=== PATIENT | female | born 1935 | race Caucasian/White ===

== ENCOUNTER 2017-05-04 21:26 | Observation (INO) | payer OTHER ==
[2017-05-04] MEDS ORDERED: ONDANSETRON DISINTEGRATING 4 MG TAB PO ONE (21:41)
[2017-05-04] MEDS ORDERED: fentaNYL 100 MCG/2 ML INJ IVP ONE (21:41)
--- NOTE | 2017-05-04 21:50 | EDPHY ---
H & P Time Seen by Provider: 05/04/17 21:35 HPI/ROS: CHIEF COMPLAINT: Right knee pain HISTORY OF PRESENT ILLNESS: The patient is an 82-year-old female who presents emergency department right knee pain. Patient had a right knee replacement on by Dr. Walters at [facility]. She was recovering well. 2 weeks ago she developed sudden right calf pain. She had significant discoloration and bruising. She was evaluated and had a negative ultrasound for DVT but did show Fried cyst. Patient had been recovering well from this until today. She has bleeding with some laundry when she noticed some mild right knee pain. She normally uses 1 crutch. She went to eat dinner pain increased. She now has moderate to severe right knee pain. It came on fairly suddenly. She noticed significant swelling of the right knee as well. She has no redness or warmth. She denies fevers or chills. She does not recall any trauma. REVIEW OF SYSTEMS: My complete review of systems is negative except as mentioned in the HPI. Smoking Status: Never smoked Constitutional: Initial Vital Signs Temperature (C) 37.0 C 05/04/17 21:25 Heart Rate 79 05/04/17 21:25 Respiratory Rate 20 05/04/17 21:25 Blood Pressure 169/99 H 05/04/17 21:25 O2 Sat (%) 97 05/04/17 21:25 O2 Delivery Mode Room Air Allergies/Adverse Reactions: Penicillins Allergy (Verified 11/14/12 14:30) Home Medications: Medication Instructions Recorded Glucosamine/Methylsulfonylmeth 1 cap PO DAILY 11/14/12 [Glucosamine-Msm 500-400 Mg Cap] Ibuprofen [Motrin 200 mg (OTC)] 200 mg PO HS 11/14/12 Levothyroxine [Synthroid 125 mcg 125 mcg PO DAILY06 11/14/12 (RX)] Oxybutynin Patch 3.9mg 1 tab TD Q3D 11/14/12 Pharmacy Completed 11/14/12 11/14/12 Oxybutynin Chloride 02/11/15 Medical Decision Making ED Course/Re-evaluation: In the emergency department I discussed possible etiologies with the patient. I answered all her questions. Laboratory studies were sent. An x-ray of her right knee was ordered. I reviewed the patient's laboratory studies. Her CBC was notable for mild anemia.. Her ESR and C-reactive protein were normal. Her coags were normal. Her chemistry panel is unremarkable. Knee x-ray: Please refer the dictated report by Dr. Vicente. There is an effusion but no fracture or abnormality with the hardware. I discussed the results with the patient. I answered all of her questions. Patient states her pain is improved after receiving the pain medication. However she lives home alone she does not feel she can ambulate. I feel the patient would be a risk to be sent home at this time. I discussed the case with the hospitalist service. Patient will be admitted. Differential Diagnosis: My differential includes but is not limited to joint effusion, hardware disruption, septic joint, sprain, strain, arthritis - Data Points Laboratory Results: Laboratory Results 05/04/17 21:30 05/04/17 21:30 05/04/17 05/04/17 05/04/17 21:30 21:30 21:30 WBC 6.48 10^3/uL 10^3/uL (3.80-9.50) RBC 4.85 10^6/uL 10^6/uL (4.18-5.33) Hgb 11.1 g/dL L g/dL (12.6-16.3) Hct 35.6 % L % (38.0-47.0) MCV 73.4 fL L fL (81.5-99.8) MCH 22.9 pg L pg (27.9-34.1) MCHC 31.2 g/dL L g/dL (32.4-36.7) RDW 17.2 % H % (11.5-15.2) Plt Count 328 10^3/uL 10^3/uL (150-400) MPV 9.1 fL fL (8.7-11.7) Neut % (Auto) 61.4 % % (39.3-74.2) Lymph % (Auto) 23.0 % % (15.0-45.0) [place] % (Auto) 10.3 % % (4.5-13.0) Eos % (Auto) 4.2 % % (0.6-7.6) Baso % (Auto) 0.9 % % (0.3-1.7) Nucleat RBC Rel Count 0.0 % % (0.0-0.2) Absolute Neuts (auto) 3.98 10^3/uL 10^3/uL (1.70-6.50) Absolute Lymphs (auto) 1.49 10^3/uL 10^3/uL (1.00-3.00) Absolute Monos (auto) 0.67 10^3/uL 10^3/uL (0.30-0.80) Absolute Eos (auto) 0.27 10^3/uL 10^3/uL (0.03-0.40) Absolute Basos (auto) 0.06 10^3/uL 10^3/uL (0.02-0.10) Absolute Nucleated RBC 0.00 10^3/uL 10^3/uL (0-0.01) Immature Gran % 0.2 % % (0.0-1.1) Immature Gran # 0.01 10^3/uL 10^3/uL (0.00-0.10) ESR 20 MM/HR MM/HR (0-30) PT 14.5 SEC SEC (12.0-15.0) INR 1.11 (0.83-1.16) APTT 30.8 SEC SEC (23.0-38.0) Sodium 139 mEq/L mEq/L (135-145) Potassium 4.1 mEq/L mEq/L (3.5-5.2) Chloride 105 mEq/L mEq/L (97-110) Carbon Dioxide 23 mEq/l mEq/l (22-31) Anion Gap 11 mEq/L mEq/L (8-16) BUN 23 mg/dL mg/dL (7-23) Creatinine 0.7 mg/dL mg/dL (0.6-1.0) Estimated GFR > 60 Glucose 86 mg/dL mg/dL (70-100) Calcium 8.5 mg/dL mg/dL (8.5-10.4) C-Reactive Protein < 5.0 mg/L mg/L (<10.0) Medications Given: Discontinued Medications Fentanyl (Sublimaze) 25 mcg IVP EDNOW ONE Stop: 05/04/17 21:42 Last Admin: 05/04/17 21:50 Dose: 25 mcg Ondansetron HCl (Zofran Odt) 4 mg PO EDNOW ONE Stop: 05/04/17 21:42 Last Admin: 05/04/17 21:50 Dose: 4 mg Departure - Departure Disposition: [facility] Inpatient Acute Clinical Impression: Right knee pain Qualifiers: Chronicity: acute Qualified Code(s): M25.561 - Pain in right knee Condition: Good Instructions: Knee Pain (ED) Referrals: Patient,NotPresent [Primary Care Provider] - As per Instructions
[2017-05-04 21:58] LABS: PLATELET COUNT 328 10^3/uL (150-400)
[2017-05-04 22:10] LABS: INR 1.11 (0.83-1.16); PROTIME(PATIENT) 14.5 SEC (12.0-15.0)
[2017-05-04] MEDS ORDERED: ACETAMINOPHEN 325 MG TAB PO PRN ×2 (22:29→22:42)
[2017-05-04] MEDS ORDERED: ONDANSETRON 4 MG/2 ML VIAL IVP PRN (22:29)
[2017-05-04] MEDS ORDERED: ONDANSETRON DISINTEGRATING 4 MG TAB PO PRN (22:29)
--- NOTE | 2017-05-04 22:51 | PDGENHP ---
History and Physical - Chief Complaint Knee pain - History of Present Illness 82 up F w A who had a R TKA on 04/02/16 presents with R knee pain. Patient first developed R calf/knee pain 2 weeks ago. She was evaluated with an ultrasound that revealed a Fried's cyst and no DVT. Today the patient was in usual state of health when she noticed new swelling and pain in her R knee. She has no redness, warmth, fever, or chills. She lives alone and is unable to ambulate so is being admitted for pain control and therapy evaluation. History Information - Allergies/Home Medication List Allergies/Adverse Reactions: Penicillins Allergy (Verified 11/14/12 14:30) Home Medications: Glucosamine/Methylsulfonylmeth [Glucosamine-Msm 500-400 Mg Cap] 1 cap PO DAILY 11/14/12 [Last Taken 11/14/12] Ibuprofen [Motrin 200 mg (OTC)] 200 mg PO HS 11/14/12 [Last Taken 11/13/12] Levothyroxine [Synthroid 125 mcg (RX)] 125 mcg PO DAILY06 11/14/12 [Last Taken 11/14/12 07:00] Oxybutynin Patch 3.9mg 1 tab TD Q3D 11/14/12 [Last Taken 11/14/12] Pharmacy Completed 11/14/12 11/14/12 [Last Taken Unknown] Oxybutynin Chloride 02/11/15 [Last Taken Unknown] I have personally reviewed and updated: family history, medical history - Past Medical History arthritis - Surgical History Additional surgical history: R TKA 04/02/16 - Family History Additional family history: Asked, denies - Social History Smoking Status: Never smoked Review of Systems Review of Systems: ROS: 10pt was reviewed & negative except for what was stated in HPI & below Physical Exam Physical Exam: Temp Pulse Resp BP Pulse Ox 37.0 C 79 20 169/99 H 97 05/04/17 21:25 05/04/17 21:25 05/04/17 21:25 05/04/17 21:25 05/04/17 21:25 Constitutional: no apparent distress, uncomfortable Eyes: PERRL, EOMI Ears, Nose, Mouth, Throat: moist mucous membranes, no oral mucosal ulcers Cardiovascular: regular rate and rhythym, no murmur, rub, or gallop Respiratory: no respiratory distress, clear to auscultation Gastrointestinal: normoactive bowel sounds, soft, non-tender abdomen Skin: warm, other (R knee effusion, tender to palpation) Neurologic: AAOx3, CN II-XII Intact Psychiatric: interacting appropriately, not anxious Lab Data & Imaging Review 05/04/17 21:30 05/04/17 21:30 WBC 6.48 10^3/uL (3.80-9.50) 05/04/17 21: RBC 4.85 10^6/uL (4.18-5.33) 05/04/17 21: Hgb 11.1 g/dL (12.6-16.3) L 05/04/17 21: Hct 35.6 % (38.0-47.0) L 05/04/17 21: MCV 73.4 fL (81.5-99.8) L 05/04/17 21: MCH 22.9 pg (27.9-34.1) L 05/04/17 21: MCHC 31.2 g/dL (32.4-36.7) L 05/04/17 21: RDW 17.2 % (11.5-15.2) H 05/04/17 21: Plt Count 328 10^3/uL (150-400) 05/04/17 21: MPV 9.1 fL (8.7-11.7) 05/04/17 21: Neut % (Auto) 61.4 % (39.3-74.2) 05/04/17 21: Lymph % (Auto) 23.0 % (15.0-45.0) 05/04/17 21: [place] % (Auto) 10.3 % (4.5-13.0) 05/04/17 21: Eos % (Auto) 4.2 % (0.6-7.6) 05/04/17 21: Baso % (Auto) 0.9 % (0.3-1.7) 05/04/17 21: Nucleat RBC Rel Count 0.0 % (0.0-0.2) 05/04/17 21: Absolute Neuts (auto) 3.98 10^3/uL (1.70-6.50) 05/04/17 21:30 Absolute Lymphs (auto) 1.49 10^3/uL (1.00-3.00) 05/04/17 21:30 Absolute Monos (auto) 0.67 10^3/uL (0.30-0.80) 05/04/17 21:30 Absolute Eos (auto) 0.27 10^3/uL (0.03-0.40) 05/04/17 21:30 Absolute Basos (auto) 0.06 10^3/uL (0.02-0.10) 05/04/17 21:30 Absolute Nucleated RBC 0.00 10^3/uL (0-0.01) 05/04/17 21: Immature Gran % 0.2 % (0.0-1.1) 05/04/17 21: Immature Gran # 0.01 10^3/uL (0.00-0.10) 05/04/17 21:30 ESR 20 MM/HR (0-30) 05/04/17 21:30 PT 14.5 SEC (12.0-15.0) 05/04/17 21:30 INR 1.11 (0.83-1.16) 05/04/17 21:30 APTT 30.8 SEC (23.0-38.0) 05/04/17 21:30 Sodium 139 mEq/L (135-145) 05/04/17 21:30 Potassium 4.1 mEq/L (3.5-5.2) 05/04/17 21:30 Chloride 105 mEq/L (97-110) 05/04/17 21: Carbon Dioxide 23 mEq/l (22-31) 05/04/17 21:30 Anion Gap 11 mEq/L (8-16) 05/04/17 21:30 BUN 23 mg/dL (7-23) 05/04/17 21:30 Creatinine 0.7 mg/dL (0.6-1.0) 05/04/17 21:30 Estimated GFR > 60 05/04/17 21:30 Glucose 86 mg/dL (70-100) 05/04/17 21:30 Calcium 8.5 mg/dL (8.5-10.4) 05/04/17 21:30 C-Reactive Protein < 5.0 mg/L (<10.0) 05/04/17 21:30 Assessment & Plan Assessment: 82 yo F w/ hx of R TKA presents with R knee pain. Plan: 1. R Knee pain - Most likely related to recently diagnosed Fried's cyst, perhaps this ruptured. Patient has no signs of infection currently with normal Temp, WBC, ESR, and CRP. Normal inflammatory markers make gout and CPPD less likely but these can be considered if not improving with conservative measures. - Admit for observation - APAP PRN for pain control, will prescribes opiates sparingly if necessary noting age - PT/OT evaluations - Ice, elevate as able - If not improving or signs/symptoms of inflammation arise, will need arthrocentesis Diet - Regular Code - Full Ppx- SCDs Dispo - Admit under observation status
[2017-05-04] MEDS ORDERED: ACETAMINOPHEN 500 MG TAB ONE (23:09)
[2017-05-04] MEDS ORDERED: ACETAMINOPHEN 500 MG TAB PO PRN (23:30)
[2017-05-05 04:55] LABS: PLATELET COUNT 280 10^3/uL (150-400)
[2017-05-05 07:39] VITALS: BP 130/68; PULSE 82; RESP 14; TEMP 97.3; O2SAT 90
[2017-05-05] MEDS ORDERED: ACETAMINOPHEN 500 MG TAB PO PRN (15:01)
[2017-05-05] MEDS ORDERED: NAPROXEN SODIUM 220 MG TAB PO PRN (15:01)
--- NOTE | 2017-05-05 15:04 | HOSPPROG ---
Hospitalist Progress Note Assessment/Plan: knee better home today see dc summary Subjective: kne better w conservatie measures Objective: Vital Signs Temp Pulse Resp BP Pulse Ox 36.3 C 82 14 130/68 H 90 L 05/05/17 07:38 05/05/17 07:38 05/05/17 07:38 05/05/17 07:38 05/05/17 07:38 Laboratory Results 05/05/17 04:44 05/05/17 04:44 05/04/17 05/05/17 05/06/17 05:59 05:59 05:59 Intake Total 0 Balance 0 PT 14.5 SEC (12.0-15.0) 05/04/17 21:30 INR 1.11 (0.83-1.16) 05/04/17 21:30 - Physical Exam Constitutional: no apparent distress, appears nourished Eyes: PERRL, anicteric sclera Ears, Nose, Mouth, Throat: moist mucous membranes, hearing normal Cardiovascular: regular rate and rhythym, no murmur, rub, or gallop Respiratory: no respiratory distress, no rales or rhonchi Gastrointestinal: normoactive bowel sounds Genitourinary: no bladder fullness Skin: warm Musculoskeletal: other (knee w small effusion, not warm) Neurologic: AAOx3, sensation intact bilaterally ICD10 Worksheet Patient Problems: Problems Problem Status Onset Right knee pain Acute
[2017-05-05] MEDS ORDERED: Denosumab [Prolia] 60 MG SQ SCH (15:15)
--- NOTE | 2017-05-05 16:22 | GDS ---
[f rep st] DISCHARGE SUMMARY DISCHARGE DIAGNOSES: 1. Knee pain, likely secondary to ruptured Fried's cyst. 2. History of recent knee replacement in the fall. Please see admission history and physical by Dr. Sheng Hale. The patient is a remarkably spry 82-year-old female who had a recent knee replacement. She had right knee replacement in March 2016, and presents with a 2-week history of knee pain. She had a ruptu red Fried's cyst and became acutely worse yesterday. Examination revealed no warmth. There was a sm all effusion. There was no pain with passive motion. The patient received conservative therapy with p.r.n. Tylenol. The knee was considerably better today. She is [facility] /[id number]/MODL
[2017-05-05] MEDS ORDERED: KETOPROFEN TP SCH (21:00)
[2017-05-05] MEDS ORDERED: TROSPIUM CHLORIDE 20 MG PO SCH (21:00)
[2017-05-05] MEDS ORDERED: CHOLECALCIFEROL VIT D3 2,000 UNITS TAB/CAP PO SCH (21:00)
[2017-05-06] MEDS ORDERED: LEVOTHYROXINE 112 MCG TAB PO SCH (06:00)
[2017-05-06] MEDS ORDERED: MULTIVITAMINS 1 EACH TAB PO SCH (09:00)
[2017-05-06] MEDS ORDERED: ASPIRIN 81 MG CHEWABLE TAB PO SCH (09:00)
== END 2017-05-05 16:33 | disposition home or self-care (01) ==
LOC: EDUNIT# → F3E 23:40
PROVIDERS: ADMIT Student in an Organized Health Care Education/Training Program; ATTEND Student in an Organized Health Care Education/Training Program
DX: M66.0 Rupture of popliteal cyst (principal); Z96.651 Presence of right artificial knee joint
CPT/HCPCS: 73562; G0378; J3010; 96374